=== PATIENT | female | born 1975 | race Two or more races ===

== ENCOUNTER → 2016-09-13 | Day surgery (SDC) | payer OTHER ==
[2016-09-09 17:38] VITALS: BMI 39.3
[~2016-09-13] MED LIST: ACETAMINOPHEN 325 MG TABLET (FP) PO PRN; DEXAMETHASONE SOD PHOSPHATE 4 MG/1 ML VIAL ONE; IBUPROFEN 400 MG TABLET (FP) PO PRN; KETOROLAC TROMETHAMINE 30 MG/1 ML VIAL ONE; LACTATED RINGERS SOLUTION 1,000 ML IV SCH; LIDOCAINE HCL/PF 2% SDV 5ML VIAL ONE; MIDAZOLAM HCL 2 MG/2 ML SINGLE DOSE VIAL ONE; ONDANSETRON 4 MG/2 ML VIAL IVPUSH PRN; PROMETHAZINE HCL 25 MG/1 ML VIAL IVPUSH PRN; PROPOFOL 20 ML ONE; oxyCODONE HCL 5 MG TABLET PO PRN
--- NOTE | 2016-09-13 10:16 | HP ---
History & Physical Update - History History: No Change - Physical Physical: No Change - Assessment Assessment: No Change - Plan Plan: No Change
[2016-09-13 12:01] VITALS: TEMP 98.5
[2016-09-13 13:53] VITALS: BP 128/57; PULSE 82
--- NOTE | 2016-09-13 14:04 | OP ---
Operative Note - Note: Operative Date: 09/13/16 Pre-Operative Diagnosis: HPV. Cervical Dysplasia Operation: Cervical Leep cone. endocervical biopsy Post-Operative Diagnosis: Same as Pre-op Surgeon: Aspen Mccord Anesthesia: General Estimated Blood Loss (mls): 25 Operative Report Dictated: Yes
--- NOTE | 2016-09-14 12:40 | PATH ---
Surgical Pathology Report Patient Name: TONYA US [facility]. Rec. #: [id number] /Age/Gender: 1975 (Age: 41) / F Account: [id number] Location: [facility] SURGICAL Taken: 09/13/2016 Received: 09/13/2016 Reported: 09/14/2016 Physicians: Aspen Mccord M.D. Specimen(s) Received A: ENDOCERVICAL LEEP CONE BIOPSY B: EXOCERVICAL LEEP CONE BIOPSY Clinical History Cervical dysplasia Final Diagnosis A. ENDOCERVIX, LEEP CONE BIOPSY: BENIGN ENDOCERVICAL MUCOSA. NO DYSPLASIA IDENTIFIED. TRANSFORMATION ZONE: NOT IDENTIFIED. B. EXOCERVIX, LEEP CONE BIOPSY: CERVICAL SQUAMOUS AND ENDOCERVICAL MUCOSA WITH LOW GRADE SQUAMOUS INTRAEPITHELIAL LESION (CERVICAL INTRAEPITHELIAL NEOPLASIA 1/MARGARITA-1), PRESENT IN ALL FOUR QUADRANTS. SURGICAL RESECTION MARGINS: NEGATIVE FOR DYSPLASIA. TRANSFORMATION ZONE: PRESENT. Electronically Signed Ki Salinas M.D. Gross Description A. Received in formalin labeled "endocervical biopsy" is a 2.5 x 1.0 x 0.5 cm osorio, irregular, unoriented portion of cauterized tissue. There is no definite mucosa identified. The specimen is inked green, serially sectioned and entirely submitted in 2 cassettes. B. Received in formalin labeled "exocervical biopsy" is a 1.6 cm in diameter annular portion of soft tissue, consistent with a cervical LEEP cone biopsy. The specimen is surfaced by a osorio-pink, shiny and glistening mucosa. There is an undesignated suture present which is arbitrarily designated the 12:00 aspect. The specimen is inked green, serially sectioned and entirely and sequentially submitted in 4 cassettes as follows: 1-12:00 to 3:00; 2-3:00 to 6:00; 3-6:00 to 9:00; 4-9:00 to 12:00. /09/13/2016 [facility]09/13/2016
== END | disposition home or self-care (01) ==
LOC: EDBD → JASU-SURG 05:53
PROVIDERS: ATTEND Obstetrics & Gynecology
PROC: 0UBC7ZX Excision of Cervix, Via Natural or Artificial Opening, Diagnostic (ICD-10-PCS; principal; 2016-09-13 09:30)
DX: N87.0 Mild cervical dysplasia (principal); R87.820 Cervical low risk human papillomavirus (HPV) DNA test positive
CPT/HCPCS: 84703; 88307-TC; 94760